=== PATIENT | female | born 1990 | race Hispanic/Latino ===

== ENCOUNTER 2019-01-24 18:15 | Emergency (ER) | payer BC, SELFPAY ==
[2019-01-24 18:45] LABS: Absolute Lymphocytes (CBC) 1.5 K/uL (0.7-4.9); Absolute Monocytes 0.5 K/uL (0.1-1.3); Basophils % 0.5 % (0-1.3); Eosinophils % 0.7 % (0-4.4); Hematocrit 41.5 % (36.0-45.0); Lymphocytes % 21.9 % (15.3-44.8); MPV 9.5 fL (7.6-11.3); Monocytes % 6.7 % (3.3-12.3); RBC Red Blood Cell Count 4.62 M/uL (3.86-4.86)
[2019-01-24 18:54] LABS: BUN Blood Urea Nitrogen 16 mg/dL (7-18); Bicarbonate 27 mmol/L (21-32); Glucose Level 97 mg/dL (74-106); Potassium 4.1 mmol/L (3.5-5.1); Sodium Level 143 mmol/L (136-145)
--- NOTE | 2019-01-24 18:56 | RAD REPORT ---
EXAM DESCRIPTION: RAD - Chest Single View - 01/24/2019 6:51 pm CLINICAL HISTORY: Chest pain COMPARISON: December 2007 TECHNIQUE: AP portable chest image was obtained 1848 hours . FINDINGS: Lungs are clear. Heart and vasculature are normal. No measurable pleural effusion and no p neumothorax. No acute bony abnormality seen. No acute aortic findings suspected. IMPRESSION: No acute cardiopulmonary process. No significant interval change.
--- NOTE | 2019-01-24 19:35 | EDPHYS ---
Physician Documentation [facility] Name: Savanna Dunbar Age: 28 yrs Sex: Female : 1990 Arrival Date: 01/24/2019 Time: 18:16 Bed 7 Private MD: ED Physician Adrián Navarrete HPI: 01/24 20:19 This 28 yrs old Female presents to ER via Ambulatory with complaints of gs Anxiety. 20:19 The patient or guardian reports chest pain that is located primarily in the anterior gs chest wall. The pain does not radiate. Associated signs and symptoms: Pertinent positives: shortness of breath. Associated signs and symptoms: Pertinent positives: anxiety. The chest pain is described as sharp. Duration: The patient or guardian reports multiple episodes, that wax and wane, with no pattern. Modifying factors: the symptoms are aggravated by deep breath. Severity of pain: At its worst the pain was moderate in the emergency department the pain is unchanged. The patient has experienced similar episodes in the past, multiple times. 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 - Ebola Screening: : No symptoms or risks identified at this time. - Social history:: Smoking status: Patient/guardian denies using tobacco. ROS: 20:19 All other systems are negative. gs Exam: 20:19 Head/Face: Normocephalic, atraumatic. Eyes: Pupils equal round and reactive to light, gs extra-ocular motions intact. Lids and lashes normal. Conjunctiva and sclera are non-icteric and not injected. Cornea within normal limits. Periorbital areas with no swelling, redness, or edema. ENT: Nares patent. No nasal discharge, no septal abnormalities noted. Tympanic membranes are normal and external auditory canals are clear. Oropharynx with no redness, swelling, or masses, exudates, or evidence of obstruction, uvula midline. Mucous membranes moist. Neck: Trachea midline, no thyromegaly or masses palpated, and no cervical lymphadenopathy. Supple, full range of motion without nuchal rigidity, or vertebral point tenderness. No Meningismus. Chest/axilla: Normal chest wall appearance and motion. Nontender with no deformity. No lesions are appreciated. Cardiovascular: Regular rate and rhythm with a normal S1 and S2. No gallops, murmurs, or rubs. Normal PMI, no JVD. No pulse deficits. Respiratory: Lungs have equal breath sounds bilaterally, clear to auscultation and percussion. No rales, rhonchi or wheezes noted. No increased work of breathing, no retractions or nasal flaring. Abdomen/GI: Soft, non-tender, with normal bowel sounds. No distension or tympany. No guarding or rebound. No evidence of tenderness throughout. Back: No spinal tenderness. No costovertebral tenderness. Full range of motion. Skin: Warm, dry with normal turgor. Normal color with no rashes, no lesions, and no evidence of cellulitis. MS/ Extremity: Pulses equal, no cyanosis. Neurovascular intact. Full, normal range of motion. Neuro: Awake and alert, GCS 15, oriented to person, place, time, and situation. Cranial nerves II-XII grossly intact. Motor strength 5/5 in all extremities. Sensory grossly intact. Cerebellar exam normal. Normal gait. 20:19 Constitutional: The patient appears alert, awake. 20:19 ECG was reviewed by the Attending Physician. Vital Signs: 18:19 BP 121 / 67; Pulse 78; Resp 16 S; Temp 98.1(O); Pulse Ox 100% on R/A; Weight 65.77 kg aa5 (R); Height 5 ft. 3 in. (160.02 cm) (R); Pain 7/10; 19:38 BP 106 / 70; Pulse 70; Resp 14; Pulse Ox 100% on R/A; Pain 0/10; aa1 18:19 Body Mass Index 25.69 (65.77 kg, 160.02 cm) aa5 MDM: 18:26 Patient medically screened. gs 20:19 Differential diagnosis: anxiety, chest wall pain, pleurisy. Data reviewed: vital signs, gs nurses notes, lab test result(s), EKG, radiologic studies. Counseling: I had a detailed discussion with the patient and/or guardian regarding: the historical points, exam findings, and any diagnostic results supporting the discharge/admit diagnosis, lab results, radiology results, the need for outpatient follow up. Response to treatment: the patient's symptoms have markedly improved after treatment, and as a result, I will discharge patient. 01/24 18: Order name: D-Dimer; Complete Time: : 01/24 18: Order name: XRAY CXR (1 view); Complete Time: 19: 01/24 18:27 Order name: CBC with Automated Diff; Complete Time: 19: [facility] 01/24 18: Order name: Basic Metabolic Panel; Complete Time: : [facility] 01/24 18: Order name: EKG; Complete Time: 18:28 01/24 18:27 Order name: EKG - Nurse/Tech; Complete Time: 18:38 EC: Rate is 68 beats/min. Rhythm is regular. CT interval is normal. QRS interval is normal. gs QT interval is normal. No Q waves. T waves are Normal. No ST changes noted. Clinical impression: Normal ECG. Interpreted by me. Administered Medications: No medications were administered Disposition: 01/24/19 19:35 Discharged to Home. Impression: Chest pain on breathing, Anxiety disorder, unspecified. - Condition is Stable. - Discharge Instructions: Panic Attacks, Nonspecific Chest Pain. - Medication Reconciliation Form, Thank You Letter, Antibiotic Education, Prescription Opioid Use form. - Follow up: Private Physician; When: 2 - 3 days; Reason: Re-evaluation by your physician. Signatures: Dispatcher [employer] [facility] Marie Mesa RN RN aa1 Benita Espinoza RN RN aa5 Ladonna Baca RN RN Adrián Navarrete MD MD Corrections: (The following items were deleted from the chart) 19:48 19:35 01/24/2019 19:35 Discharged to Home. Impression: Chest pain on breathing; Anxiety aa1 disorder, unspecified. Condition is Stable. Forms are Medication Reconciliation Form, Thank You Letter, Antibiotic Education, Prescription Opioid Use. Follow up: Private Physician; When: 2 - 3 days; Reason: Re-evaluation by your physician. gs
--- NOTE | 2019-01-24 19:35 | ER ---
Nurse's Notes [facility] Name: Savanna Dunbar Age: 28 yrs Sex: Female : 1990 Arrival Date: 01/24/2019 Time: 18:16 Bed 7 Private MD: Diagnosis: Chest pain on breathing;Anxiety disorder, unspecified Presentation: 01/24 18:18 Presenting complaint: Patient states: "I have anxiety and I was feeling anxious aa5 yesterday and having chest pain but today I was at work feeling dizzy and nauseated". Pt also c/o chest pain. 18:18 Acuity: MITZI 3 aa5 18:18 Method Of Arrival: Ambulatory aa5 18:23 Transition of care: patient was not received from another setting of care. Onset of aa5 symptoms was December 2018. Risk Assessment: Do you want to hurt yourself or someone else? Patient reports no desire to harm self or others. Initial Sepsis Screen: Does the patient meet any 2 criteria? No. Patient's initial sepsis screen is negative. Does the patient have a suspected source of infection? No. Patient's initial sepsis screen is negative. Care prior to arrival: None. 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 - Ebola Screening: : No symptoms or risks identified at this time. - Social history:: Smoking status: Patient/guardian denies using tobacco. Screenin:39 Abuse screen: Denies threats or abuse. Denies injuries from another. Nutritional hb screening: No deficits noted. Tuberculosis screening: No symptoms or risk factors identified. Fall Risk None identified. Assessment: 18:39 General: Appears in no apparent distress. Behavior is calm, cooperative. Pain: Denies hb pain. Neuro: Level of Consciousness is awake, alert, obeys commands, Oriented to person, place, time, situation. Cardiovascular: Capillary refill < 3 seconds Patient's skin is warm and dry. Respiratory: Airway is patent Respiratory effort is even, unlabored, Respiratory pattern is regular, symmetrical, Breath sounds are clear bilaterally. GI: No signs and/or symptoms were reported involving the gastrointestinal system. : No signs and/or symptoms were reported regarding the genitourinary system. EENT: No signs and/or symptoms were reported regarding the EENT system. Derm: Skin is intact, is healthy with good turgor, Skin is pink, warm \\T\\ dry. normal. Musculoskeletal: No signs and/or symptoms reported regarding the musculoskeletal system. 19:38 Reassessment: Patient appears in no apparent distress at this time. Patient and/or aa1 family updated on plan of care and expected duration. Pain level reassessed. Patient is alert, oriented x 3, equal unlabored respirations, skin warm/dry/pink. Dr. Navarrete at bedside discussing results with pt Patient states feeling better. 19:47 Reassessment: Discussed d/c \\T\\ f/u instructions with pt \\T\\ significant other; denies aa 1 questions or concerns at this time. Amb to lobby with steady gait. Vital Signs: 18:19 BP 121 / 67; Pulse 78; Resp 16 S; Temp 98.1(O); Pulse Ox 100% on R/A; Weight 65.77 kg aa5 (R); Height 5 ft. 3 in. (160.02 cm) (R); Pain 7/10; 19:38 BP 106 / 70; Pulse 70; Resp 14; Pulse Ox 100% on R/A; Pain 0/10; aa1 18:19 Body Mass Index 25.69 (65.77 kg, 160.02 cm) aa5 ED Course: 18:16 Patient arrived in ED. as 18:17 Arm band placed on. aa5 18:19 Adrián Navarrete MD is Attending Physician. gs 18:24 Triage completed. aa5 18:28 Ladonna Baca, PAVAN is Primary Nurse. hb 18:32 Inserted saline lock: 20 gauge in right antecubital area, using aseptic technique. hb Blood collected. 18:40 EKG done, by ED staff, reviewed by Adrián Navarrete MD. dh3 18:50 X-ray completed. Portable x-ray completed in exam room. Patient tolerated procedure ls3 well. 18:51 XRAY CXR (1 view) In Process Unspecified. EDMS 18:51 Patient has correct armband on for positive identification. Bed in low position. Call hb light in reach. Side rails up X 1. 19:47 No provider procedures requiring assistance completed. IV discontinued, intact, aa1 bleeding controlled, No redness/swelling at site. Pressure dressing applied. Administered Medications: No medications were administered Outcome: 19:35 Discharge ordered by . 19:47 Discharged to home ambulatory, with significant other. aa1 19:47 Condition: good 19:47 Discharge instructions given to patient, significant other, Instructed on discharge instructions, follow up and referral plans. Demonstrated understanding of instructions, follow-up care. 19:48 Patient left the ED. aa1 Signatures: Dispatcher [employer] EDMS Marie Mesa RN RN aa1 Fátima Cannon Audri RN RN aa5 Ladonna Baca RN RN Justin, Ban 3 Adrián Navarrete MD MD Rafita Najera ls3 Corrections: (The following items were deleted from the chart) 18:24 18:23 Presenting complaint: Patient states: "I have anxiety and I was feeling anxious aa5 yesterday and having chest pain but today I was at work feeling dizzy and nauseated". Pt also c/o chest pain aa5 18:24 18:23 Method Of Arrival: Ambulatory aa5 aa5 18:24 18:23 Acuity: MITZI 3 aa5 aa5
--- NOTE | 2019-01-25 07:14 | EKG ---
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
--- NOTE | 2019-01-25 21:42 | EKG ---
Test Date: 2019-01-24 Test Time: 18:36:38 Sas Statistical Programmer: MADI MEASUREMENT RESULTS: Intervals: Rate: 68 ID: [id number] QRSD: 88 QT: 392 QTc: 416 [place]: P: 55 ID: [id number] QRS: 82 T: 63 INTERPRETIVE STATEMENTS: Normal sinus rhythm Normal ECG Compared to ECG 01/24/2019 18:36:06 Sinus arrhythmia no longer present Electronically Signed On 01-25-19 21:38:58 CDT by Aleksander Black
== END 2019-01-24 19:48 | disposition home or self-care (01) ==
LOC: ER 18:15
DX: F41.9 Anxiety disorder, unspecified (principal); Z88.8 Allergy status to other drugs, medicaments and biological substances
CPT/HCPCS: 36415; 71045; 80048; 85025; 85379; 93005; 99284

== ENCOUNTER 2024-07-04 11:52 | Emergency (ER) | payer SELFPAY ==
[2024-07-04 13:29] LABS: Sqamous Epithelial <5 /HPF (None Seen); Urine Bacteria None Seen /HPF (<20); Urine Bilirubin NEGATIVE (Negative); Urine Blood Negative (Negative); Urine Clarity Clear (Clear); Urine Color Light-Yellow (Yellow); Urine Crystals Unidentified Few /HPF (None Seen); Urine Culture Reflex Order NOT NEEDED; Urine Glucose NEGATIVE (Negative); Urine Ketones NEGATIVE (Negative); Urine Microscopic Reflex YN ORDER UMIC; Urine Nitrite NEGATIVE (Negative); Urine Protein NEGATIVE (Negative); Urine RBC <5 /HPF (None Seen); Urine Urobilinogen Normal (Normal); Urine WBC <5 /HPF (<5); Urine Yeast (Budding) Trace /HPF (None Seen); Urine pH 6.5 (5.0-7.0)
--- NOTE | 2024-07-04 13:56 | RAD REPORT ---
Abdomen Exam Limited: 07/04/2024 1:47 PM CLINICAL HISTORY: ABD PAIN STUDY: Limited right upper quadrant ultrasound of abdomen. COMPARISON: None. FINDINGS: Liver: No significant abnormality. Bile ducts: No intrahepatic or extrahepatic biliary dilatation. Common bile duct measures 3 mm. Gallbladder: Negative for cholelithiasis. The gallbladder is contracted which simulates wall thickeni ng. IMPRESSION: Negative for cholelithiasis or acute cholecystitis. Contracted gallbladder. No biliary duct dilatatio n.
[2024-07-04] MEDS ORDERED: DIPHENHYDRAMINE 50 MG/ML VIAL ONE (13:59)
[2024-07-04] MEDS ORDERED: NA CHLORIDE 0.9% 1,000 ML ONE (13:59)
[2024-07-04] MEDS ORDERED: FAMOTIDINE 20 MG/2 ML VIAL IV ONE (13:59)
[2024-07-04 14:23] LABS: Absolute Eosinophils 0.2 K/uL (0-0.5); Absolute Lymphocytes (CBC) 1.3 K/uL (0.7-4.9); Absolute Monocytes 0.6 K/uL (0.1-1.3); Absolute Neutrophil 5.2 K/uL (1.8-8.0); Basophils % 0.4 % (0-1.3); Eosinophils % 2.8 % (0-4.4); Hemoglobin 12.9 g/dL (12.0-15.0); MCH 29.9 pg (27.0-35.0); MCHC 33.2 g/dL (32.0-36.0); MCV 90.1 fL (80-100); Monocytes % 7.6 % (3.3-12.3); Neutrophils % 71.2 % (41.7-73.7); Platelets 459 thou/uL (152-406); RBC Red Blood Cell Count 4.32 M/uL (3.86-4.86); Red Cell Distribution Width 13.2 % (12.1-15.2)
[2024-07-04 14:36] LABS: Anion Gap 7.8 mEq/L (5.0-15.0); Potassium 3.8 mEq/L (3.5-5.1)
[2024-07-04] MEDS ORDERED: CEFTRIAXONE 1000 MG/VIAL ONE (15:01)
--- NOTE | 2024-07-04 15:14 | RAD REPORT ---
EXAMINATION: CT ABDOMEN AND PELVIS WITH CONTRAST CLINICAL INDICATION: Female, 33 years old.ABD PAIN TECHNIQUE: CT abdomen and pelvis was performed, after the administration of IV contrast, as [facility]. Axial, sagittal and coronal reconstructions were obtained. One or more of the following dose reduction techniques were used: Automated exposure control, adjustment of the mA and/o r kV according to patient size, and/or iterative reconstruction. Unless otherwise specified, incidental findings do not require dedicated imaging follow-up. [id number]. COMPARISON: No prior exam. FINDINGS: LOWER CHEST: The visualized lung bases are clear. LIVER: Hepatic steatosis. Subcentimeter low-density lesions in the right hepatic lobe are almost cert ainly benign. GALLBLADDER/BILE DUCT: No biliary ductal dilatation.? PANCREAS: No significant abnormality. SPLEEN: Normal size. No focal lesion. ADRENALS: Normal; no mass. KIDNEYS AND URETERS: Normal size and contour. No hydronephrosis. GASTROINTESTINAL TRACT: Stomach is non-dilated. Small bowel has normal course and caliber. No colonic wall thickening or pericolonic inflammatory changes. No appendicitis. Nonspecific fluid-filled loops of small bowel. PERITONEUM: Trace pelvic free fluid. Small fat-containing umbilical hernia. LYMPH NODES: No lymphadenopathy. ABDOMINAL AORTA AND OTHER VESSELS: Normal caliber aorta and IVC. URINARY BLADDER: Normal contour. REPRODUCTIVE ORGANS: No pathologic process MUSCULOSKELETAL: No acute or suspicious osseous abnormality. ADDITIONAL FINDINGS: None. IMPRESSION: No acute or significant abnormalities seen in the abdomen or pelvis. Normal appendix.
--- NOTE | 2024-07-04 15:16 | ER ---
Nurse's Notes [facility] Name: Savanna Dunbar Age: 33 yrs Sex: Female : 1990 Arrival Date: 07/04/2024 Time: 11:52 Bed 12 Private MD: Diagnosis: Epigastric abdominal tenderness;Rash and other nonspecific skin eruption;Acute gastritis;UTI/ Urinary tract infection, site not specified Presentation: 07/04 12:24 Chief complaint: Patient states: Rash to her neck and chest onset Thursday. Pt also cm10 reports abdominal pain onset this morning. pt reports diarrhea and nausea. Coronavirus screen: Client denies travel out of the [place] in the last 14 days. Ebola Screen: Patient denies travel to an Ebola-affected area in the 21 days before illness onset. No symptoms or risks identified at this time. Initial Sepsis Screen: Does the patient meet any 2 criteria? No. Patient's initial sepsis screen is negative. Does the patient have a suspected source of infection? No. Patient's initial sepsis screen is negative. Risk Assessment: Do you want to hurt yourself or someone else? Patient reports no desire to harm self or others. Onset of symptoms was July 04, 2024. 12:24 Method Of Arrival: Ambulatory cm10 12:24 Acuity: MITZI 3 cm10 Triage Assessment: 12:26 General: Appears in no apparent distress. comfortable, Behavior is calm, cooperative. cm10 Neuro: No deficits noted. Level of Consciousness is awake, alert, obeys commands, Oriented to person, place, time, situation, Appropriate for age. Respiratory: No deficits noted. Airway is patent Respiratory effort is even, unlabored, Respiratory pattern is regular, symmetrical. Derm: Rash noted that is red, on neck and chest. 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 - Infectious Disease History:: Denies. - Social history:: Smoking status: Patient denies any tobacco usage or history of. Screenin:21 [facility] ED Fall Risk Assessment (Adult) History of falling in the last 3 months, tl4 including since admission No falls in past 3 months (0 pts) Confusion or Disorientation No (0 pts) Intoxicated or Sedated No (0 pts) Impaired Gait No (0 pts) Mobility Assist Device Used No (0 pt) Altered Elimination No (0 pt) Score/Fall Risk Level 0 - 2 = Low Risk Oriented to surroundings, Maintained a safe environment, Educated pt \T\ family on fall prevention, incl call for assistance when getting out of bed, Assessed \T\ reinforced patient's understanding of fall precautions. Abuse screen: Denies threats or abuse. Denies injuries from another. Nutritional screening: No deficits noted. Tuberculosis screening: No symptoms or risk factors identified. Assessment: 14:19 General: Appears in no apparent distress. Behavior is calm, cooperative. Pain: tl4 Complains of pain in chest and abdomen. Neuro: Level of Consciousness is awake, alert, obeys commands, Oriented to person, place, time, situation. Cardiovascular: Capillary refill < 3 seconds Patient's skin is warm and dry. Respiratory: Airway is patent Respiratory effort is even, unlabored, Respiratory pattern is regular, symmetrical, Breath sounds are clear bilaterally. GI: Bowel sounds present X 4 quads. Abd is soft and non tender X 4 quads. : No signs and/or symptoms were reported regarding the genitourinary system. EENT: No signs and/or symptoms were reported regarding the EENT system. Derm: No signs and/or symptoms reported regarding the dermatologic system. Musculoskeletal: No signs and/or symptoms reported regarding the musculoskeletal system. 16:13 Reassessment: Delay to discharge due to waiting for MD to answer pt questions. tl4 Vital Signs: 12:24 BP 116 / 72; Pulse 72; Resp 16; Temp 98.5; Pulse Ox 99% ; Weight 74.84 kg; Height 5 ft. cm10 3 in. ; Pain 7/10; 14:20 BP 111 / 79; Pulse 73; Resp 18; Pulse Ox 100% on R/A; Pain 3/10; tl4 15:26 BP 114 / 76; Pulse 76; Resp 15; Temp 98.1(O); Pulse Ox 100% on R/A; tl4 16:13 BP 108 / 59; Pulse 69; Resp 18; Temp 98.5(O); Pulse Ox 99% on R/A; Pain 4/10; tl4 12:24 Body Mass Index 29.23 (74.84 kg, 160.02 cm) cm10 12:24 Pain Scale: Adult cm10 14:20 Pain Scale: Adult tl4 16:13 Pain Scale: Adult tl4 ED Course: 11:54 Patient arrived in ED. ra3 12:10 Lorenzo Liu MD is Attending Physician. huyen 12:25 Triage completed. cm10 12:26 Arm band placed on Patient placed in waiting room. cm10 13:17 Urinalysis w/ reflexes Sent. tl4 13:17 Test, Urine Sent. tl4 13:18 Urine collected: clean catch specimen. tl4 13:50 US Abdomen Limited In Process Unspecified. EDMS 13:56 Kyler Cast, PAVAN is Primary Nurse. tl4 14:19 Lipase Sent. tl4 14:19 Basic Metabolic Panel Sent. tl4 14:19 CBC with Diff Sent. tl4 14:22 Patient has correct armband on for positive identification. Placed in gown. Bed in low tl4 position. Call light in reach. Side rails up X2. Adult w/ patient. Provided Education on: ed process, call robison. Client placed on continuous cardiac and pulse oximetry monitoring. NIBP monitoring applied. Door closed. Noise minimized. Lights dimmed. Moved to private room. Warm blanket given. 14:23 No provider procedures requiring assistance completed. Initial lab(s) drawn, by pa, tl4 sent to lab. Inserted saline lock: 22 gauge in right antecubital area, using aseptic technique. Blood collected. Flushed with 10 mL NS. 15:06 CT Abd/Pelvis - IV Contrast Only In Process Unspecified. EDMS 15:15 Stoney Espinoza MD is Referral Physician. [facility] 15:26 Warm blanket given. tl4 16:13 IV discontinued, intact, bleeding controlled, No redness/swelling at site. Pressure tl4 dressing applied. Administered Medications: 14:18 Drug: diphenhydrAMINE IVP 25 mg IVP once Route: IVP; Infused Over: 2 mins; Site: right tl4 antecubital; 15:06 Follow up: Response: No adverse reaction tl4 14:18 Drug: Famotidine IVP 20 mg IVP once; dilute with 10 mL 0.9% NaCl; give over 2 minutes tl4 Route: IVP; Infused Over: 2 mins; Site: right antecubital; 15:06 Follow up: Response: No adverse reaction tl4 14:19 Drug: NS 0.9% IV 1000 ml IV at 1 bolus Per protocol; 1000 mL bolus Route: IV; Rate: 1 tl4 bolus; Site: right antecubital; Delivery: Primary tubing; 15:06 Follow up: Response: No adverse reaction; IV Status: Completed infusion; IV Intake: tl4 1000ml 15:05 Drug: Rocephin IV 1 grams IV at per protocol once; Given slow IV push per pharmacy tl4 instructions Route: IV; Rate: per protocol; Site: right antecubital; 16:17 Follow up: Response: No adverse reaction tl4 16:17 Follow up: IV Status: Completed infusion tl4 Medication: 14:21 VIS not applicable for this client. tl4 Intake: 15:06 IV: 1000ml; Total: 1000ml. tl4 Outcome: 15:15 Discharge ordered by MD. matson 16:14 Discharged to home ambulatory, with family, tl4 16:14 Condition: stable 16:14 Discharge instructions given to patient, family, Instructed on discharge instructions, follow up and referral plans. medication usage, Demonstrated understanding of instructions, follow-up care, medications, Prescriptions given X 5 16:18 Patient left the ED. tl4 Signatures: Dispatcher [employer] Lorenzo Marshall MD MD cha Martinez, Clarissa RN RN cm10 Kyler Cast RN RN tl4 Carissa Ortiz ra3
--- NOTE | 2024-07-04 15:16 | EDPHYS ---
Physician Documentation [facility] Name: Savanna Dunbar Age: 33 yrs Sex: Female : 1990 Arrival Date: 07/04/2024 Time: 11:52 Bed 12 Private MD: ED Physician Lorenzo Liu HPI: 07/04 14:44 This 33 yrs old Female presents to ER via Ambulatory with complaints of Rash, huyen Abdominal Pain. 14:44 The patient's rash thought to be caused by Dermatitis an unknown cause. The rash is huyen located on the chest and posterior chest. The rash can be described as erythematous. Associated signs and symptoms: Pertinent positives: None. Severity of symptoms: At their worst the symptoms were mild in the emergency department the symptoms are unchanged. Treatment given at home: Benadryl. [employer]: 12:26 LMP 06/12/2024, unknown cm10 Historical: - Allergies: 12:25 topiramate; cm10 - Home Meds: 14:23 None [Active]; tl4 - PMHx: 12:25 Anxiety; cm10 - PSHx: 12:25 None; cm10 - Immunization history:: Adult Immunizations up to date. - Infectious Disease History:: Denies. - Social history:: Smoking status: Patient denies any tobacco usage or history of. ROS: 14:46 Constitutional: Negative for fever, chills, and weight loss, Eyes: Negative for injury, huyen pain, redness, and discharge, ENT: Negative for injury, pain, and discharge, Neck: Negative for injury, pain, and swelling, Cardiovascular: Negative for chest pain, palpitations, and edema, Respiratory: Negative for shortness of breath, cough, wheezing, and pleuritic chest pain, Back: Negative for injury and pain, : Negative for injury, bleeding, discharge, and swelling, MS/Extremity: Negative for injury and deformity, Skin: Negative for injury, rash, and discoloration, Neuro: Negative for headache, weakness, numbness, tingling, and seizure, 14:46 Abdomen/GI: Positive for abdominal pain, nausea, of the epigastric area, Exam: 14:47 Constitutional: This is a well developed, well nourished patient who is awake, alert, huyen and in no acute distress. Head/Face: Normocephalic, atraumatic. Eyes: Pupils equal round and reactive to light, extra-ocular motions intact. Lids and lashes normal. Conjunctiva and sclera are non-icteric and not injected. Cornea within normal limits. Periorbital areas with no swelling, redness, or edema. ENT: Nares patent. No nasal discharge, no septal abnormalities noted. Tympanic membranes are normal and external auditory canals are clear. Oropharynx with no redness, swelling, or masses, exudates, or evidence of obstruction, uvula midline. Mucous membranes moist. Neck: Trachea midline, no thyromegaly or masses palpated, and no cervical lymphadenopathy. Supple, full range of motion without nuchal rigidity, or vertebral point tenderness. No Meningismus. Chest/axilla: Normal chest wall appearance and motion. Nontender with no deformity. No lesions are appreciated. Cardiovascular: Regular rate and rhythm with a normal S1 and S2. No gallops, murmurs, or rubs. Normal PMI, no JVD. No pulse deficits. Respiratory: Lungs have equal breath sounds bilaterally, clear to auscultation and percussion. No rales, rhonchi or wheezes noted. No increased work of breathing, no retractions or nasal flaring. Back: No spinal tenderness. No costovertebral tenderness. Full range of motion. MS/ Extremity: Pulses equal, no cyanosis. Neurovascular intact. Full, normal range of motion. Neuro: Awake and alert, GCS 15, oriented to person, place, time, and situation. Cranial nerves II-XII grossly intact. Motor strength 5/5 in all extremities. Sensory grossly intact. Cerebellar exam normal. Normal gait. Psych: Awake, alert, with orientation to person, place and time. Behavior, mood, and affect are within normal limits. 14:47 Abdomen/GI: Inspection: abdomen appears normal, Bowel sounds: normal, Palpation: mild abdominal tenderness, in the epigastric area, Liver: no appreciated palpable abnormalities, Hernia: not appreciated, 14:47 Skin: rash can be described as nonspecific, Vital Signs: 12:24 BP 116 / 72; Pulse 72; Resp 16; Temp 98.5; Pulse Ox 99% ; Weight 74.84 kg; Height 5 ft. cm10 3 in. ; Pain 7/10; 14:20 BP 111 / 79; Pulse 73; Resp 18; Pulse Ox 100% on R/A; Pain 3/10; tl4 15:26 BP 114 / 76; Pulse 76; Resp 15; Temp 98.1(O); Pulse Ox 100% on R/A; tl4 16:13 BP 108 / 59; Pulse 69; Resp 18; Temp 98.5(O); Pulse Ox 99% on R/A; Pain 4/10; tl4 12:24 Body Mass Index 29.23 (74.84 kg, 160.02 cm) cm10 12:24 Pain Scale: Adult cm10 14:20 Pain Scale: Adult tl4 16:13 Pain Scale: Adult tl4 MDM: 12:10 Patient medically screened. huyen 14:48 Differential diagnosis: appendicitis, bowel obstruction, coronary artery disease, huyen Cholelithiasis, gastritis, Hepatitis. Data reviewed: vital signs, nurses notes, lab test result(s), radiologic studies, CT scan, ultrasound. Consideration of Admission/Observation Escalation of care including admission/observation considered. I considered the following discharge prescriptions or medication management in the emergency department Medications were administered in the Emergency Department. See MAR. Independent interpretation of the following test(s) in the Emergency Department Radiology Department Ultrasound: My interpretation is gb usg. Test considered but Not performed: MRI: no mrcp. Care significantly affected by the following chronic conditions: anxieti. 07/04 13:11 Order name: CBC with Diff; Complete Time: 14:43 bd 07/04 13:11 Order name: Basic Metabolic Panel; Complete Time: 14:43 07/04 13:11 Order name: Lipase; Complete Time: 14:43 07/04 13:11 Order name: Test, Urine; Complete Time: 14:01 bd 07/04 13:11 Order name: Urinalysis w/ reflexes; Complete Time: 14:01 bd 07/04 13:27 Order name: US Abdomen Limited; Complete Time: 14:01 huyen 07/04 14:02 Order name: CT Abd/Pelvis - IV Contrast Only [facility] 07/04 12:51 Order name: IV Saline Lock; Complete Time: 14:19 tl4 07/04 12:51 Order name: Labs collected and sent; Complete Time: 14:19 tl4 Administered Medications: 14:18 Drug: diphenhydrAMINE IVP 25 mg IVP once Route: IVP; Infused Over: 2 mins; Site: right tl4 antecubital; 15:06 Follow up: Response: No adverse reaction tl4 14:18 Drug: Famotidine IVP 20 mg IVP once; dilute with 10 mL 0.9% NaCl; give over 2 minutes tl4 Route: IVP; Infused Over: 2 mins; Site: right antecubital; 15:06 Follow up: Response: No adverse reaction tl4 14:19 Drug: NS 0.9% IV 1000 ml IV at 1 bolus Per protocol; 1000 mL bolus Route: IV; Rate: 1 tl4 bolus; Site: right antecubital; Delivery: Primary tubing; 15:06 Follow up: Response: No adverse reaction; IV Status: Completed infusion; IV Intake: tl4 1000ml 15:05 Drug: Rocephin IV 1 grams IV at per protocol once; Given slow IV push per pharmacy tl4 instructions Route: IV; Rate: per protocol; Site: right antecubital; 16:17 Follow up: Response: No adverse reaction tl4 16:17 Follow up: IV Status: Completed infusion tl4 Disposition Summary: 07/04/24 15:15 Discharge Ordered Notes: Location: Home huyen Problem: new huyen Symptoms: have improved huyen Condition: Stable huyen Diagnosis - Epigastric abdominal tenderness huyen - Rash and other nonspecific skin eruption huyen - Acute gastritis huyen - UTI/ Urinary tract infection, site not specified huyen Followup: huyen - With: Private Physician - When: 2 - 3 days - Reason: Recheck today's complaints, Continuance of care, Re-evaluation by your physician Followup: huyen - With: Stoney Espinoza MD - When: 2 - 3 days - Reason: Recheck today's complaints, Re-evaluation by your physician Discharge Instructions: - Discharge Summary Sheet huyen - Abdominal Pain, Adult huyen - Gastritis, Adult huyen - Rash, Adult huyen - Urinary Tract Infection, Adult huyen - Urinary Tract Infection, Adult, [id number] Forms: - Medication Reconciliation Form [facility] - Antibiotic Education huyen - Prescription Opioid Use huyen - Patient Portal Instructions [facility] - Leadership Thank You Letter [facility] - Work release form tl4 Prescriptions: - ondansetron 4 mg Oral Tablet,disintegrating - take 1 tablet ORAL route every 8-12 hours for 5 days; 20 tablet; Refills: 0, [facility] Product Selection Permitted - Benadryl 25 mg Oral Capsule - take 1 capsule ORAL route every 6 hours As needed; 30 tablet; Refills: 0, [facility] Product Selection Permitted - Cipro 250 mg Oral tablet - take 1 tablet ORAL route every 12 hours; 14 tablet; Refills: 0, Product huyen Selection Permitted - Pepcid 20 mg Oral tablet - take 1 tablet ORAL route every 12 hours for 21 days; 42 tablet; Refills: 0, [facility] Product Selection Permitted - dicyclomine 20 mg Oral tablet - take 1 tablet ORAL route 4 times per day; 28 tablet; Refills: 0, Product [facility] Selection Permitted Signatures: Dispatcher [employer] Lorenzo Marshall MD MD cha Martinez, Clarissa RN RN cm10 Kyler Cast RN RN tl4 Corrections: (The following items were deleted from the chart) 13:27 13:27 Abdomen Limited+[email or web address] ordered. [facility] EDPR
[2024-07-04 17:00] VITALS: BP 108/59; TEMP 98.5; O2SAT 99
== END 2024-07-04 16:18 | disposition home or self-care (01) ==
LOC: ER 11:52
DX: N39.0 Urinary tract infection, site not specified (principal); K29.00 Acute gastritis without bleeding; R21 Rash and other nonspecific skin eruption
CPT/HCPCS: 36415; 74177; 76705; 80048; 81001; 81025; 83690; 85025; 96361; 96365; 96375; 99284; J0696; J1200; J7030; Q9967